=== PATIENT | male | born 1965 | race Hispanic/Latino ===

== ENCOUNTER → 2017-05-16 | Day surgery (SDC) | payer OTHER ==
[~2017-05-16] VITALS: Ht 165.1 cm; Wt 98.0 kg
[~2017-05-16] MED LIST: 0.9% Sodium Chloride 1,000 ML IV SCH; MELO-253 PO; RISP2TAB3 PO; SERT50TA9 PO; Sodium Chloride LOK Flush 10 mL Syringe IV PRN; TRAM50TA2 PO; fentaNYL-PF 50 mCg/mL 2 mL Inj IVPUSH PRN
[2017-05-16 13:27] VITALS: BP 129/81; PULSE 55; O2SAT 95
--- NOTE | 2017-05-16 14:54 | PCM.ENDCOL ---
Colonoscopy Date of Service: May 16, 2017 Physician Salvador Dang MD Pre Procedure Diagnosis: Screening Post Procedure Dx & Findings: Polyp hemorrhoids diverticuli Procedure Colonoscopy PROCEDURE IN DETAIL: Prep adequate Withdrawal time 10 minutes After unremarkable rectal examination the Olympus video colonoscope was inserted patient's anal canal and was advanced to cecum. Landmarks were identified including the ileocecal valve and appendiceal orifice. Scope was withdrawn systematically. Visualized colonic mucosa showed healthy shiny mucosa with normal healthy-appearing vasculature. In this rectosigmoid junction, there was a 2 mm polyp which was removed completely using cold snare. From the distal sigmoid colon there were several small to medium sized diverticuli mostly in the sigmoid colon whenever isolated up to the ascending colon. In the rectum retroflexion was done which showed hemorrhoids. Anal canal was inspected carefully on the way out and hemorrhoids noted. Impression Polyp 1 status post complete removal Diverticuli Hemorrhoids Recommendation Repeat colonoscopy in 5 years Diverticular diet Presedation Assessment Risks and Benefits Informed consent was obtained from the patient after all risks and benefits including but not limited to drug reaction, infection, pain, bleeding, perforation, as well as alternatives were discussed. Patient monitoring Continuous pulse oximetry, cardiac monitoring, blood pressure monitoring, IV access, and oxygen at 2L per nasal cannula. Periprocedural Fentanyl: Fentanyl 100mcg Incrementally Midazolam: Midazolam 5mg Incrementally Complications There were no periprocedural complications identified. Post Procedure Plan Post Procedure Recommendations 1. Restrict activities today. 2. Resume normal activities in the morning. 3. Resume medications. 4. Patient informed of normal post procedure side effects as bloating, drowsiness, blood streaking in the stool. 5. average risk CRCS. If colon polyps come back as: -Hyperplastic- can repeat colonoscopy in 10 years -Tubular adenoma- repeat colonoscopy in 5 years -Tubulovillous/villous adenoma- repeat colonoscopy in 3 years -If any dysplasia- return to clinic as soon as possible 6. Please don't hesitate to call me with any questions. Salvador Dang MD May 16, 2017 14:54
[2017-05-16 14:59] VITALS: BP 128/80; PULSE 59; RESP 16; O2SAT 95
[2017-05-16 15:08] VITALS: BP 122/80; PULSE 66; RESP 16; O2SAT 97
[2017-05-16 15:12] VITALS: BP 118/80; PULSE 61; RESP 16; O2SAT 96
--- NOTE | 2017-05-19 18:35 | PATH ---
SURGICAL PATHOLOGY Attending Physician:Salvador Dang M.D. CASE STATUS: Signed Out PATIENT NAME: AMMON GARCIA PID: [id number] : 1965 DATE COLLECTED:05/16/2017 00:00 SPECIMEN: Rectum, Biopsy CLINICAL HISTORY: 1). RECTUM POLYP FINAL DIAGNOSIS: 1.RECTUM POLYP, POLYPECTOMY: COLONIC MUCOSA WITH HYPERPLASTIC FEATURES. ICD10 K63.5 GROSS DESCRIPTION: The specimen is received in one formalin filled container labeled with the patient's name, sublabeled "rectal polyp" and consists of a 0.2 x 0.2 x 0.1 CM portion of tissue which is entirely submitted in one cassette. 05/17/2017DC MICRO DESCRIPTION: See diagnosis. ICD-9 CODES: CPT CODES: 1: 37960 Electronically Signed Out Sander Davis MD, Ph.D. [facility], [place] [address] Technical component performed at [facility], [address] [place] [address] [address], [place], [address]
== END | disposition home or self-care (01) ==
LOC: END 00:27
PROVIDERS: ATTEND Internal Medicine
DX: Z12.11 Encounter for screening for malignant neoplasm of colon (principal); K62.1 Rectal polyp; K57.30 Diverticulosis of large intestine without perforation or abscess without bleeding; K64.9 Unspecified hemorrhoids; M54.16 Radiculopathy, lumbar region; F41.8 Other specified anxiety disorders; G47.33 Obstructive sleep apnea (adult) (pediatric); M19.90 Unspecified osteoarthritis, unspecified site; Z87.442 Personal history of urinary calculi
CPT/HCPCS: 45385; 99152; 99153; J2250; J3010; J7030